=== PATIENT | female | born 1965 | race Caucasian/White ===

== ENCOUNTER 2016-09-10 07:55 | Emergency (ER) | payer OTHER ==
[2016-09-10 08:39] LABS: BASOPHIL 0.3 % (0-2); EOSINOPHIL 2.6 % (0-5); HCT 42.7 % (37.0-47.0); LYMPHOCYTE 23.3 % (15-48); MCH 31.8 pg (25.0-31.0); MCHC 35.1 g/dL (32.0-36.0); MCV 90.5 fL (78.0-100.0); MONOCYTE 6.9 % (0-12); MPV 10.4 fL (6.0-9.5); NEUTROPHIL 66.9 % (41-80); PLT 213 K/uL (150-400); RBC 4.72 M/uL (4.20-5.40); RDW 13.2 % (11.5-14.0); WBC 7.4 K/uL (4.0-10.5)
[2016-09-10 08:40] LABS: BILIRUBIN NEGATIVE (NEGATIVE); BLOOD 1+ Ery/uL (NEGATIVE); CLARITY CLEAR (CLEAR); COLOR YELLOW (YELLOW); GLUCOSE (U) NORMAL (NORMAL); KETONE (U) NEGATIVE (NEGATIVE); LEUKOCYTES NEGATIVE Leu/uL (NEGATIVE); NITRITE NEGATIVE (NEGATIVE); PROTEIN NEGATIVE (NEGATIVE); UROBILINOGEN 0.2 mg/dL (0.2-1.0); pH 5.5 (5.0-9.0)
[2016-09-10 08:43] LABS: BACTERIA TRACE; URINARY WBC RARE
[2016-09-10 08:44] LABS: SQUAMOUS EPITHELIAL CELLS RARE
[2016-09-10 08:50] LABS: AMPHETAMINES NEGATIVE (NEGATIVE); BARBITURATES NEGATIVE (NEGATIVE); BENZODIAZEPINES NEGATIVE (NEGATIVE); COCAINE NEGATIVE (NEGATIVE); MARIJUANA (THC) NEGATIVE (NEGATIVE)
[2016-09-10 08:51] LABS: METHADONE NEGATIVE (NEGATIVE); TRICYCLIC ANTIDEPRESSANT NEGATIVE (NEGATIVE)
[2016-09-10 08:59] LABS: ALBUMIN 4.3 g/dL (3.5-5.0); BILIRUBIN - TOTAL 0.5 mg/dL (0.1-1.0); CREATININE 0.8 mg/dL (0.5-1.0); GLOBULIN (CALCULATION) 2.9 g/dL (2.2-4.2); TOTAL PROTEIN 7.2 g/dL (6.4-8.3)
== END 2016-09-10 14:05 | disposition home or self-care (01) ==
LOC: FER 07:55
PROVIDERS: Internal Medicine
DX: K59.00 Constipation, unspecified (principal); D25.9 Leiomyoma of uterus, unspecified; F17.210 Nicotine dependence, cigarettes, uncomplicated; Z87.42 Personal history of other diseases of the female genital tract; Z98.51 Tubal ligation status
CPT/HCPCS: 36415; 76830; 80053; 80305; 81001; 83690; 85025; J1885; J2270; Q9967